=== PATIENT | female | born 1945 | race Caucasian/White ===

== ENCOUNTER → 2016-11-08 | Outpatient (CLI) | payer MEDICARE, OTHER ==
[~2016-11-08] MED LIST: AMARYL4 MG PO; ASPIRIN 81M81 MG/TA2 PO; CELLCEPT 5500 MG/TAB PO; CIPRO 500MG TA500 MG PO; GLUCOPHAGE XR500 M1 PO; HCTZ 25MG TAB25 MG PO; IMURAN 50MG TAB50 MG; IMURAN 50MG TAB50 MG PO; LEVEMIR100 U/ML SC; LOPRESSOR 225 MG/TAB PO; NOVOLOG 100U100 U/M1 SC; PREDNISONE 5MG5 MG PO; PREDNISONE10 MG PO; PRILOSEC 20MG20 MG PO; VASOTEC 10M10 MG/TAB PO
== END ==
LOC: COL.RAD 08:15
DX: K74.60 Unspecified cirrhosis of liver (principal); K76.6 Portal hypertension; R16.1 Splenomegaly, not elsewhere classified

== ENCOUNTER → 2017-07-11 | Outpatient (CLI) | payer MEDICARE, OTHER | LOC: COL.RAD 09:43 | DX: R16.1 Splenomegaly, not elsewhere classified (principal); K75.4 Autoimmune hepatitis; D50.9 Iron deficiency anemia, unspecified ==

== ENCOUNTER 2017-11-25 08:01 | Outpatient (CLI) | payer MEDICARE, OTHER ==
[~2017-11-25] VITALS: Ht 162.6 cm; Wt 69.8 kg
[2017-11-25 09:00] LABS: BASO % 0.9 % (0.0-2.0); EOS # 0.1 (0.0-0.7); EOS % 3.9 % (0-4.0); GRAN # 2.2 (1.4-6.5); GRAN % 66.6 % (42.2-75.2); HEMOGLOBIN 12.5 g/dl (12.5-16.0); LYMPH # 0.5 (1.2-3.4); LYMPH % 15.2 % (20.0-51.0); MEAN CELL VOLUME 95 fl (80.0-100.0); MEAN CORPUSCULAR HEMOGLOBIN 31 pg (27.0-31.0); MEAN CORPUSCULAR HGB CONC 33 g/dl (33.0-37.0); MEAN PLATELET VOLUME 11.3 fl (7.4-10.4); MONO # 0.4 (0.1-0.6); MONO % 12.8 % (1.7-9.3); PLATELET COUNT 87 K/mm3 (130-400); RED BLOOD COUNT 4.02 M/mm3 (4.10-5.30); REDCELL DISTRIBUTION WIDTH-CV 14.9 % (11.5-14.5)
[2017-11-25 09:03] LABS: INR 1.3 (0.8-3.0); PROTHROMBIN TIME 14.8 SECONDS (9.7-12.8)
[2017-11-25] MEDS ORDERED: TOPROL XL 50MG50 MG PO (09:08)
[2017-11-25] MEDS ORDERED: NOVOLOG 100U100 U/M1 SQ (09:11)
[2017-11-25] MEDS ORDERED: LEVEMIR100 U/ML SQ (09:12)
[2017-11-25] MEDS ORDERED: VASOTEC20 MG PO (09:13)
[2017-11-25] MEDS ORDERED: PROBIOTIC FORMU1 CAP PO (09:19)
[2017-11-25 10:45] VITALS: BP 114/52; PULSE 93
[2017-11-25 11:37] LABS: PLEURAL FLUID APPEARANCE HAZY; PLEURAL FLUID COLOR YELLOW
[2017-11-25 11:42] LABS: PLEURAL FLUID RBC 2000 /mm3 (0-0); PLEURAL FLUID WBC 703 /mm3
[2017-11-25 11:45] VITALS: BP 108/40; PULSE 97
[2017-11-25 11:59] LABS: GLUCOSE,PLEURAL FLUID 149 mg/dL
[2017-11-25 12:02] LABS: TOTAL PROTEIN,PLEURAL FLUID < 2.0 gm/dL
[2017-11-25 17:37] VITALS: BP 90/41; PULSE 93
== END 2017-11-25 12:30 | disposition home or self-care (01) ==
LOC: SDCO 08:01
PROVIDERS: Internal Medicine Pulmonary Disease
DX: J90 Pleural effusion, not elsewhere classified (principal); R06.02 Shortness of breath; K74.60 Unspecified cirrhosis of liver; K21.9 Gastro-esophageal reflux disease without esophagitis; E11.9 Type 2 diabetes mellitus without complications; I10 Essential (primary) hypertension; J32.9 Chronic sinusitis, unspecified; Z88.0 Allergy status to penicillin; Z88.2 Allergy status to sulfonamides; Z79.4 Long term (current) use of insulin; Z90.49 Acquired absence of other specified parts of digestive tract; Z83.3 Family history of diabetes mellitus
CPT/HCPCS: 19804

== ENCOUNTER → 2019-07-13 | Outpatient (CLI) | payer MEDICARE, OTHER ==
[~2019-07-13] VITALS: Ht 162.6 cm; Wt 60.8 kg
[~2019-07-13] MED LIST changes: +IMODIUM A-D2 MG PO; +K-DUR20 MEQ PO; +LASIX 40MG TABL40 MG PO; +LEVEMIR100 U/ML SQ; +MIDAMOR 5MG TAB5 MG PO; +NOVOLOG 100U100 U/M1 SQ; +PEPCID AC 10MG10 MG PO; +PROBIOTIC FORMU1 CAP PO; +TOPROL XL 50MG50 MG PO; +VASOTEC20 MG PO; +VITAMIN D32000 I1 PO
[2019-07-13 12:51] VITALS: BP 149/67; PULSE 90
[2019-07-13 13:52] VITALS: BP 141/51; PULSE 86
--- NOTE | 2019-07-13 14:12 | NUR ---
DR MCGUIRE STATES CXR IS NEGATIVE.
--- NOTE | 2019-07-13 14:25 | NUR ---
PT LEAVES WITH HER IN POV
== END ==
LOC: COL.RAD 12:15
DX: J90 Pleural effusion, not elsewhere classified (principal)

== ENCOUNTER → 2019-07-16 | Outpatient (CLI) | payer MEDICARE, OTHER | LOC: COL.RAD 13:04 | DX: K74.60 Unspecified cirrhosis of liver (principal); K75.4 Autoimmune hepatitis; J90 Pleural effusion, not elsewhere classified; D64.9 Anemia, unspecified; Z90.49 Acquired absence of other specified parts of digestive tract ==

== ENCOUNTER 2019-07-27 07:08 | Outpatient (CLI) | payer MEDICARE, OTHER ==
[~2019-07-27] VITALS: Ht 162.6 cm; Wt 59.6 kg
[2019-07-27] MEDS ORDERED: ZOFRAN8 MG PO (07:23)
[2019-07-27 07:32] VITALS: BP 118/42; PULSE 106; TEMP 97.7
--- NOTE | 2019-07-27 07:37 | NUR ---
Patient reports that her BG this AM at home was 173.
[2019-07-27 09:25] VITALS: BP 121/43; PULSE 95; TEMP 97.7
--- NOTE | 2019-07-27 09:25 | NUR ---
Patient arrives to [facility] via cart, accompanied by Endo RN Jazmine. Bedside report received. She has a clean, dry, intact bandaid on her incision. Monitoring applied - VSS and WNL on room air. She is not coughing, she denies any SOB or pain. Breath sounds are clear bilaterally to auscultation. Waiting for ordered CXR. Patient is to call the office on Tuesday to schedule a follow-up appointment. Her spouse is at the bedside and her call light is in reach.
[2019-07-27 09:30] VITALS: BP 121/38; PULSE 99
--- NOTE | 2019-07-27 09:30 | NUR ---
VSS and WNL on room air. Baindaid remains clean/dry/intact. She denies pain, SOB, or other complaints. CXR was obtained and waiting on results.
[2019-07-27 09:45] VITALS: BP 109/40; PULSE 94
--- NOTE | 2019-07-27 09:45 | NUR ---
VSS on room air. She denies any pain, SOB, or other complaints.
--- NOTE | 2019-07-27 10:00 | NUR ---
[address] Tavarez in radiology. No pneumothorax. 0948 CXR reading reported to Dr. Jarrett. TORB received to MD patient home. 0952 Patient given discharge instructions. She denies any questions and verbalizes understanding. She denies anything to eat/drink while she is at the hospital, as they are planning to go out to breakfast. 1000 Patient changes to clothing independently. She is escorted to the exit via wheelchair. Discharged to home with ride in private vehicle at 1000.
[2019-07-27 10:30] LABS: PLEURAL FLUID RBC 9000 /mm3 (0-0); PLEURAL FLUID WBC 314 /mm3
[2019-07-27 10:35] LABS: PLEURAL FLUID APPEARANCE CLOUDY; PLEURAL FLUID COLOR AMBER
[2019-07-27 10:43] LABS: TOTAL PROTEIN,PLEURAL FLUID < 2.0 gm/dL
== END 2019-07-27 10:00 | disposition home or self-care (01) ==
LOC: SDCO 07:08
PROVIDERS: Internal Medicine Pulmonary Disease
DX: J90 Pleural effusion, not elsewhere classified (principal); K74.60 Unspecified cirrhosis of liver; J94.8 Other specified pleural conditions; K21.9 Gastro-esophageal reflux disease without esophagitis; E11.9 Type 2 diabetes mellitus without complications; I10 Essential (primary) hypertension; D69.6 Thrombocytopenia, unspecified; J32.9 Chronic sinusitis, unspecified; Z79.4 Long term (current) use of insulin; Z88.0 Allergy status to penicillin; Z88.2 Allergy status to sulfonamides; Z79.84 Long term (current) use of oral hypoglycemic drugs; Z83.3 Family history of diabetes mellitus; Z90.49 Acquired absence of other specified parts of digestive tract; Z88.8 Allergy status to other drugs, medicaments and biological substances

== ENCOUNTER 2019-08-06 07:08 | Outpatient (CLI) | payer MEDICARE, OTHER ==
[~2019-08-06] VITALS: Ht 162.6 cm; Wt 60.2 kg
[~2019-08-06 07:08] MED LIST changes: +ZOFRAN8 MG PO
[2019-08-06 07:34] VITALS: BP 120/49; PULSE 93; TEMP 97.5
--- NOTE | 2019-08-06 07:53 | NUR ---
TO RM AT 0716- CALL LIGHT IN REACH MEDS AND ALLERGIES UPDATED BY AND .
[2019-08-06 09:23] VITALS: BP 111/37; PULSE 89
--- NOTE | 2019-08-06 09:23 | NUR ---
TO RM 7 PER OWN WILL STEADY GAIT. ALERT ORIENTED X 3, TALKING TO STAFF AND UPON ENTERING RM. DENIES PAIN OR DISCOMFORT. PATIENT EXPRESSED BREATHING BETTER. RECEIVED WATER AND REFUSED ANYTHING ELSE TO EAT OR DRINK.
[2019-08-06 09:35] VITALS: BP 105/36; PULSE 89
[2019-08-06 09:50] VITALS: BP 122/81; PULSE 89
--- NOTE | 2019-08-06 09:50 | NUR ---
DR ROMERO CALLED AND REPORTED NO PNEUMOTHORAX NOTED.
--- NOTE | 2019-08-06 10:00 | NUR ---
RECEIVED DISCHARGE INSTRUCTIONS AND VERBALIZED UNDERSTANDING.
--- NOTE | 2019-08-06 10:10 | NUR ---
DISCHARGED PER WC BY NURSING STAFF TO PRIVATE CAR IN CARE OF - EVIE.
== END 2019-08-06 10:15 | disposition home or self-care (01) ==
LOC: SDCO 07:08
DX: J90 Pleural effusion, not elsewhere classified (principal); K74.60 Unspecified cirrhosis of liver; K21.9 Gastro-esophageal reflux disease without esophagitis; E11.9 Type 2 diabetes mellitus without complications; I10 Essential (primary) hypertension; J32.9 Chronic sinusitis, unspecified; D69.6 Thrombocytopenia, unspecified; Z79.4 Long term (current) use of insulin; Z88.0 Allergy status to penicillin; Z88.2 Allergy status to sulfonamides; Z90.49 Acquired absence of other specified parts of digestive tract; Z88.8 Allergy status to other drugs, medicaments and biological substances
CPT/HCPCS: 19804

== ENCOUNTER 2019-08-19 15:13 | Emergency (ER) | payer MEDICARE, OTHER ==
[~2019-08-19] VITALS: Ht 162.6 cm; Wt 61.4 kg
[2019-08-19 15:46] VITALS: TEMP 98.8
[2019-08-19 16:34] LABS: BASO % 0.6 % (0.0-2.0); EOS # 0.1 (0.0-0.7); EOS % 2.3 % (0-4.0); GRAN # 2.2 (1.4-6.5); GRAN % 64.1 % (42.2-75.2); LYMPH # 0.6 (1.2-3.4); LYMPH % 17.1 % (20.0-51.0); MEAN CELL VOLUME 97 fl (80.0-100.0); MEAN CORPUSCULAR HEMOGLOBIN 32 pg (27.0-31.0); MEAN CORPUSCULAR HGB CONC 33 g/dl (33.0-37.0); MEAN PLATELET VOLUME 10.4 fl (7.4-10.4); MONO # 0.5 (0.1-0.6); MONO % 15.3 % (1.7-9.3); PLATELET COUNT 106 K/mm3 (130-400); RED BLOOD COUNT 3.73 M/mm3 (4.10-5.30); REDCELL DISTRIBUTION WIDTH-CV 16.1 % (11.5-14.5)
[2019-08-19 16:39] LABS: HEMATOCRIT 36.3 % (37.0-47.0)
[2019-08-19 16:46] LABS: ALBUMIN 3.3 gm/dL (3.5-5.0); BILIRUBIN,TOTAL 1.6 mg/dL (0.0-1.0); CALCIUM 8.4 mg/dL (8.4-10.2); CREATININE, serum 0.61 (0.52-1.25); POTASSIUM 3.7 mmol/L (3.4-5.0); TOTAL PROTEIN 5.9 gm/dL (6.4-8.2)
[2019-08-19 16:48] LABS: INR 1.4 (0.8-3.0); PROTHROMBIN TIME 16.9 SECONDS (9.7-12.8)
[2019-08-19 18:06] VITALS: BP 109/55; PULSE 88
[2019-08-20] MEDS ORDERED: TYLENOL 500MG500 MG PO (07:43)
[2019-08-20] MEDS ORDERED: CIPRO 500MG TA500 MG PO (07:54)
== END 2019-08-19 18:06 | disposition home or self-care (01) ==
LOC: COL.ER 15:13
PROVIDERS: Emergency Medicine
DX: J90 Pleural effusion, not elsewhere classified (principal); I10 Essential (primary) hypertension; E11.9 Type 2 diabetes mellitus without complications; Z79.4 Long term (current) use of insulin

== ENCOUNTER 2019-08-20 07:05 | Day surgery (SDC) | payer MEDICARE, OTHER ==
[~2019-08-20] VITALS: Ht 162.6 cm; Wt 61.4 kg
[2019-08-20] MEDS ORDERED: TYLENOL 500MG500 MG PO (07:43)
--- NOTE | 2019-08-20 07:45 | NUR ---
Dr. Jarrett calls to ask patient if she would like her procedure today with the radiologist or with Dr. Jarrett. The patient is fine with either, but the radiolgist may be available around 0900. Wait to have procedure at 0900.
[2019-08-20] MEDS ORDERED: CIPRO 500MG TA500 MG PO (07:54)
[2019-08-20 08:13] VITALS: BP 113/47; PULSE 80; TEMP 97.4
--- NOTE | 2019-08-20 09:10 | NUR ---
Procedure not able to be done by radiologist until 1030. Dr. Jarrett available to do procedure around 1000. Pt informed about this.
--- NOTE | 2019-08-20 09:48 | NUR ---
Dr. Jarrett available. Pt ambulates to procedure room without complication.
--- NOTE | 2019-08-20 09:50 | NUR ---
Dr. Jarrett visiting with patient. Pt positioned for procedure.
[2019-08-20 10:23] VITALS: BP 111/42; PULSE 85; TEMP 97.6
--- NOTE | 2019-08-20 10:23 | NUR ---
Pt returns from procedure via cart and this RN to [facility]. [id number] brought to pt room. Monitors on and alarms set. Call light within reach. Pt requests water and applesauce. Pt denies pain or nausea and ready to depart as soon as results from the x-ray are finalized. Pt alert and oriented.
[2019-08-20 10:30] VITALS: BP 105/40; PULSE 83
--- NOTE | 2019-08-20 10:30 | NUR ---
Pt taking food and drink well. Pt voices no complications.
--- NOTE | 2019-08-20 10:40 | NUR ---
Radiology here for x-ray.
[2019-08-20 10:45] VITALS: BP 108/41; PULSE 83
--- NOTE | 2019-08-20 11:08 | NUR ---
Radiologist called. No pneumothorax.
--- NOTE | 2019-08-20 11:20 | NUR ---
Discharge instructions given to patient and family. Multiple questions answered and explanations given. Handed to patient are a thank you card, discharge instructions, diagnosis information, and a discharge summary.
--- NOTE | 2019-08-20 11:33 | NUR ---
Pt transferred out of hospital via wheelchair and this RN to private vehicle driven by [id number].
[2019-08-20 12:54] LABS: PLEURAL FLUID RBC 10000 /mm3 (0-0); PLEURAL FLUID WBC 153 /mm3
[2019-08-20 13:24] LABS: TOTAL PROTEIN,PLEURAL FLUID < 2.0 gm/dL
[2019-08-20 13:37] LABS: PLEURAL FLUID COLOR PINK
[2019-08-20 13:38] LABS: PLEURAL FLUID APPEARANCE HAZY
[2019-08-20 14:51] VITALS: BP 96/40; PULSE 77
== END 2019-08-20 11:33 | disposition home or self-care (01) ==
LOC: SDCO 07:05
PROVIDERS: Internal Medicine Pulmonary Disease
DX: J90 Pleural effusion, not elsewhere classified (principal); K74.60 Unspecified cirrhosis of liver; K21.9 Gastro-esophageal reflux disease without esophagitis; E11.9 Type 2 diabetes mellitus without complications; I10 Essential (primary) hypertension; J34.89 Other specified disorders of nose and nasal sinuses; J32.9 Chronic sinusitis, unspecified; K74.69 Other cirrhosis of liver; D69.6 Thrombocytopenia, unspecified; K75.4 Autoimmune hepatitis; Z79.4 Long term (current) use of insulin; Z90.49 Acquired absence of other specified parts of digestive tract; Z88.0 Allergy status to penicillin; Z88.2 Allergy status to sulfonamides
CPT/HCPCS: 19804

== ENCOUNTER → 2019-08-24 | Outpatient (CLI) | payer MEDICARE, OTHER ==
[~2019-08-24] MED LIST changes: +TYLENOL 500MG500 MG PO
== END ==
LOC: COL.VAS 10:30
DX: I08.0 Rheumatic disorders of both mitral and aortic valves (principal); J90 Pleural effusion, not elsewhere classified; R18.8 Other ascites

== ENCOUNTER → 2019-12-27 | Outpatient (CLI) | payer MEDICARE, OTHER | LOC: COL.VAS 13:11 | DX: I27.20 Pulmonary hypertension, unspecified (principal); I34.0 Nonrheumatic mitral (valve) insufficiency ==

== ENCOUNTER 2020-02-06 07:11 | Outpatient (CLI) | payer MEDICARE, OTHER ==
[~2020-02-06] VITALS: Ht 162.6 cm; Wt 56.7 kg
[2020-02-06 07:42] VITALS: BP 110/41; PULSE 111; TEMP 98
[2020-02-06 09:00] VITALS: BP 111/36; PULSE 95; TEMP 97.9
--- NOTE | 2020-02-06 09:00 | NUR ---
VSS. PATIENT SITTING UP ON SIDE OF CART. PATIENT DENIES SHORTNESS OF BREATH AND DISCOMFORT. PATIENT IS NOT CURRENTLY COUGHING. 09 PATIENT GIVEN ICE WATER AND TOAST. 0906 RADIOLOGY IN ROOM FOR CHEST XRAY.
[2020-02-06 09:15] VITALS: BP 116/41; PULSE 104
--- NOTE | 2020-02-06 09:15 | NUR ---
VSS. PATIENT TOLERATES WATER AND TOAST WITHOUT PROBLEMS. PATIENT CONTINUES TO DENY DISCOMFORT AND SHORTNESS OF BREATH. 0916 REPORT CALLED TO EXPRESS UNIT TO ELIO IRENE. 09 PATIENT TRANSPORTED PER WHEELCHAIR WITH ALL PERSONAL BELONGS ACCOMPANIED BY AMBULATORY NURSE TO EXPRESS UNIT TO RECEIVE ALBUMIN INFUSION. ELIO IRENE AT CHAIR SIDE.
[2020-02-06 09:35] VITALS: BP 108/43; PULSE 101; TEMP 97
--- NOTE | 2020-02-06 09:35 | NUR ---
PT RECIEVED FROM OP FOR ALBUMIN INFUSION, DR THOMPSON ENTERED ORDER FOR 12.5 AND CONFIRMED WITH PHARMACIST. PT TO EU 10, TRANSFERS SELF VSS. IV STARTED #22 TO LAC. FIRST ATTEMPT. REVIEWED MED WITH PT AND INFUSION STARTED AT 80CC/HR BANDAID TO BACK LEFT LOWER CHEST IS CLEAN AND DRY.
--- NOTE | 2020-02-06 09:58 | NUR ---
VSS. PATIENT ALERT AND ORIENTED X 3. PATIENT DENIES DISCOMFORT AND SHORTNESS OF BREATH. 0905 PATIENT GIVEN ICE WATER AND TOAST.
--- NOTE | 2020-02-06 10:06 | NUR ---
NOTIFIED DR THOMPSON PER PHONE OF XRAY BEING RESULTED IN COMPUTER.
[2020-02-06 10:26] VITALS: BP 106/40; PULSE 103
--- NOTE | 2020-02-06 10:28 | NUR ---
infuison completed, iv dc'd intact, pt has no c/o or dizziness. skin warm and dry, no change in assessment. discharged via w/c to car to
== END 2020-02-06 10:35 | disposition home or self-care (01) ==
LOC: SDCO 07:11
DX: J90 Pleural effusion, not elsewhere classified (principal); K74.60 Unspecified cirrhosis of liver; K21.9 Gastro-esophageal reflux disease without esophagitis; E11.9 Type 2 diabetes mellitus without complications; I10 Essential (primary) hypertension; I27.20 Pulmonary hypertension, unspecified; J32.9 Chronic sinusitis, unspecified; I31.3 Pericardial effusion (noninflammatory); Z88.0 Allergy status to penicillin; Z88.2 Allergy status to sulfonamides; Z79.4 Long term (current) use of insulin
CPT/HCPCS: P9047

== ENCOUNTER 2020-02-21 07:32 | Outpatient (CLI) | payer MEDICARE, OTHER ==
[~2020-02-21] VITALS: Ht 162.6 cm; Wt 57.3 kg
[~2020-02-21 07:32] MED LIST changes: +MASON NATURAL2000 IU PO; -VITAMIN D32000 I1 PO
[2020-02-21 08:01] VITALS: BP 105/31; PULSE 81; TEMP 97.8
[2020-02-21 09:50] VITALS: BP 90/31; PULSE 80
--- NOTE | 2020-02-21 09:50 | NUR ---
Patient returns to room 6 per cart after having thoracentesis completed. Bandaid on the right lower back dry. No drainage noted at site. Spouse in the room and call light in reach. Chest xray was completed prior to returning to room and no pneumothorax noted.
--- NOTE | 2020-02-21 10:00 | NUR ---
Eating applesauce and drinking water. Denies shortness of breath or difficulty breathing.
[2020-02-21 10:05] VITALS: BP 97/36; PULSE 82
--- NOTE | 2020-02-21 10:05 | NUR ---
Room air sats 98% and tolerates sitting up on cart.
[2020-02-21 10:20] VITALS: BP 100/36; PULSE 80
--- NOTE | 2020-02-21 10:20 | NUR ---
Tolerated applesauce and water. Continues to deny shortness of breath of chest pains. Assisted with dressing in preparation for discharge.
--- NOTE | 2020-02-21 10:28 | NUR ---
Dismissal instructions given and voices understanding of these. Follow up will be as needed.
--- NOTE | 2020-02-21 10:31 | NUR ---
Patient dismissed to home driven by spouse and taken to the front door per wheelchair by this RN and assisted into car with instructions in hand.
[2020-02-21 11:34] VITALS: BP 101/48; PULSE 84
== END 2020-02-21 10:31 | disposition home or self-care (01) ==
LOC: SDCO 07:32 → EDSTATUS 08:15 → SDCO 08:15
DX: J90 Pleural effusion, not elsewhere classified (principal); K74.60 Unspecified cirrhosis of liver; Z88.0 Allergy status to penicillin; Z88.2 Allergy status to sulfonamides; K21.9 Gastro-esophageal reflux disease without esophagitis; E11.9 Type 2 diabetes mellitus without complications; I10 Essential (primary) hypertension; I27.20 Pulmonary hypertension, unspecified; D69.6 Thrombocytopenia, unspecified; Z79.4 Long term (current) use of insulin
CPT/HCPCS: 19804

== ENCOUNTER 2020-03-02 11:25 | Inpatient (IN) | payer MEDICARE, OTHER ==
[~2020-03-02] VITALS: Ht 162.6 cm; Wt 57.6 kg
[2020-03-02 11:57] LABS: EOS # 0.1 (0.0-0.7); EOS % 2.9 % (0-4.0); GRAN # 2.8 (1.4-6.5); GRAN % 68.7 % (42.2-75.2); LYMPH # 0.5 (1.2-3.4); LYMPH % 11.9 % (20.0-51.0); MEAN CELL VOLUME 99 fl (80.0-100.0); MEAN CORPUSCULAR HGB CONC 33 g/dl (33.0-37.0); MEAN PLATELET VOLUME 11.5 fl (7.4-10.4); MONO # 0.6 (0.1-0.6); MONO % 15.3 % (1.7-9.3); PLATELET COUNT 131 K/mm3 (130-400); RED BLOOD COUNT 2.34 M/mm3 (4.10-5.30); REDCELL DISTRIBUTION WIDTH-CV 17.2 % (11.5-14.5)
[2020-03-02 12:00] LABS: HEMATOCRIT 23.2 % (37.0-47.0); HEMOGLOBIN 7.6 g/dl (12.5-16.0); MEAN CORPUSCULAR HEMOGLOBIN 32 pg (27.0-31.0)
[2020-03-02 12:07] LABS: INR 1.5 (0.8-3.0); PROTHROMBIN TIME 16.7 SECONDS (9.7-12.8)
[2020-03-02 12:09] LABS: PARTIAL THROMBOPLASTIN TIME 29.6 SECONDS (26.0-37.0)
[2020-03-02 12:11] LABS: ALANINE AMINOTRANSFERASE 22 U/L (4-34); ALBUMIN 3.2 gm/dL (3.5-5.0); ALKALINE PHOSPHATASE 203 U/L (50-136); ANION GAP 11 mmol/L (7-16); AST,SGOT 37 U/L (15-37); BILIRUBIN,TOTAL 1.7 mg/dL (0.0-1.0); BLOOD UREA NITROGEN 29 mg/dL (7-17); CALCIUM 8.4 mg/dL (8.4-10.2); CARBON DIOXIDE 21 mmol/L (22-30); CHLORIDE 95 mmol/L (98-107); CREATININE, serum 1.42 (0.52-1.25); GLUCOSE 241 mg/dL (74-106); MAGNESIUM 1.5 mg/dL (1.6-2.3); PHOSPHOROUS 3.9 mg/dL (2.5-4.5); POTASSIUM 4.2 mmol/L (3.4-5.0); SODIUM 127 mmol/L (137-145); TOTAL PROTEIN 5.8 gm/dL (6.4-8.2)
[2020-03-02 12:31] LABS: TROPONIN-I < 0.012 ng/mL (0.000-0.035)
[2020-03-02 13:07] LABS: COLLECTION METHOD CLEAN CATCH
[2020-03-02 13:29] LABS: MUCOUS Present /lpf; PH 5 (5-8); SQUAMOUS EPITHELIAL None Seen /hpf; URINE APPEARANCE Clear; URINE BACTERIA None Seen /hpf; URINE BILIRUBIN Negative (NEGATIVE); URINE BLOOD Negative (NEGATIVE); URINE COLOR Straw; URINE GLUCOSE Negative (NEGATIVE); URINE KETONE Negative (NEGATIVE); URINE LEUKOCYTE ESTERASE Negative (NEGATIVE); URINE NITRATE Negative (NEGATIVE); URINE PROTEIN(semi-quant) Negative (NEGATIVE); URINE RBC 0-2 /hpf; URINE UROBILINOGEN Negative (NEGATIVE)
[2020-03-02 16:44] LABS: BASO % 0.6 % (0.0-2.0); EOS # 0.2 (0.0-0.7); EOS % 3.6 % (0-4.0); GRAN # 3.4 (1.4-6.5); GRAN % 71.8 % (42.2-75.2); LYMPH # 0.6 (1.2-3.4); LYMPH % 11.7 % (20.0-51.0); MEAN CELL VOLUME 100 fl (80.0-100.0); MEAN CORPUSCULAR HGB CONC 32 g/dl (33.0-37.0); MEAN PLATELET VOLUME 10.7 fl (7.4-10.4); MONO # 0.6 (0.1-0.6); MONO % 11.9 % (1.7-9.3); PLATELET COUNT 144 K/mm3 (130-400); RED BLOOD COUNT 2.26 M/mm3 (4.10-5.30); REDCELL DISTRIBUTION WIDTH-CV 17.2 % (11.5-14.5)
[2020-03-02 16:55] LABS: HEMATOCRIT 22.5 % (37.0-47.0); HEMOGLOBIN 7.3 g/dl (12.5-16.0); MEAN CORPUSCULAR HEMOGLOBIN 32 pg (27.0-31.0)
[2020-03-02] MEDS ORDERED: TOPROL XL 25MG25 MG PO (17:22)
[2020-03-02] MEDS ORDERED: K-DUR 10 MEQ T10 MEQ PO (17:31)
[2020-03-02 17:46] VITALS: BP 111/39; PULSE 90; TEMP 97.5
--- NOTE | 2020-03-02 17:54 | NUR ---
PATIENT AND IN ROOM PATIENT IS COMFORTABLE IN BED. NO NEEDS EXPRESSED. AWAITING SUPPER
--- NOTE | 2020-03-02 20:00 | NUR ---
Received report from ELIO Car. Family at bedside during shift change. PT sitting up on side of bed. A/Ox4. Denies any pain or discomfort at this time. States she feels tired and wants to sleep. Scheduled meds administered. IVF currently infusing to LFA IV, dressing CDI. Tele monitor in place. Pt ambulatory, only needs assistance with IVF. Pt on ACHS checks, pt prefers and requests to use personal insulin pen and to dose self as she feels more comfortable. Informed pt that hospital can provide her with same insulin, but pt prefers to use own insulin pen and refuses SSI. Pt states that she drops low at night time and did not give self any insuling, BG 168. ECHO Alfaro notified. Needs met at this time. Informed pt that urine sample is needed. Call light within reach.
[2020-03-02 20:27] VITALS: BP 102/39; PULSE 92; TEMP 98.4
[2020-03-02 21:28] LABS: RETIC # 0.07 M/mm3 (0.02-0.16); RETIC % 2.9 % (0.5-3.52)
[2020-03-02 21:37] LABS: IRON,SERUM 215 ug/dL (35-150)
[2020-03-02 21:46] LABS: TOTAL IRON BINDING CAPACITY 283 ug/dL (265-497)
[2020-03-02 23:33] LABS: COLLECTION METHOD CLEAN CATCH
[2020-03-02 23:43] LABS: MUCOUS Present /lpf; PH 5 (5-8); SQUAMOUS EPITHELIAL 0-2 /hpf; URINE APPEARANCE Hazy; URINE BACTERIA Rare /hpf; URINE BILIRUBIN Negative (NEGATIVE); URINE BLOOD Negative (NEGATIVE); URINE CALCIUM OXALATE CRYSTAL Present /hpf; URINE COLOR Yellow; URINE GLUCOSE Negative (NEGATIVE); URINE KETONE Negative (NEGATIVE); URINE LEUKOCYTE ESTERASE 1+ (NEGATIVE); URINE NITRATE Negative (NEGATIVE); URINE PROTEIN(semi-quant) Negative (NEGATIVE); URINE UROBILINOGEN Negative (NEGATIVE)
--- NOTE | 2020-03-02 23:50 | NUR ---
Assisted pt to BR. Urine collected and sent to lab. Made pt comfortable in bed. Call light within reach.
[2020-03-03] VITALS (7 sets, daily range): BP systolic 82–117; BP diastolic 31–49; PULSE 86–106; TEMP 97.9–98.4
--- NOTE | 2020-03-03 06:10 | NUR ---
Pt had difficulty sleeping last night. Needs met. Made pt comfortable in bed. SBA to BR. NS 1L completed, IV to INT RFA. Call light within reach.
[2020-03-03 06:26] LABS: MEAN CELL VOLUME 98 fl (80.0-100.0); MEAN CORPUSCULAR HGB CONC 33 g/dl (33.0-37.0); MEAN PLATELET VOLUME 11.4 fl (7.4-10.4); PLATELET COUNT 105 K/mm3 (130-400); RED BLOOD COUNT 2.15 M/mm3 (4.10-5.30); REDCELL DISTRIBUTION WIDTH-CV 16.7 % (11.5-14.5)
[2020-03-03 06:39] LABS: HEMATOCRIT 21.1 % (37.0-47.0); MEAN CORPUSCULAR HEMOGLOBIN 33 pg (27.0-31.0)
[2020-03-03 06:41] LABS: ALBUMIN 2.9 gm/dL (3.5-5.0); CALCIUM 8.1 mg/dL (8.4-10.2); CREATININE, serum 1.21 (0.52-1.25); MAGNESIUM 1.7 mg/dL (1.6-2.3); PHOSPHOROUS 3.3 mg/dL (2.5-4.5); TOTAL PROTEIN 5.4 gm/dL (6.4-8.2)
--- NOTE | 2020-03-03 06:51 | NUR ---
Report given to ELIO Shepherd.
--- NOTE | 2020-03-03 07:18 | NUR ---
Report given to ELIO Shepherd.
[2020-03-03 08:10] LABS: BAND 12 % (0-10); EOSINOPHIL 3 % (0-4); LYMPHOCYTE 8 % (20.0-51.0); NEUTROPHILS 74 % (42.0-75.2); OVALOCYTES 2+; PLATELET ESTIMATE DECREASED (NORMAL)
--- NOTE | 2020-03-03 12:00 | NUR ---
Student nurse Laura from [place] providing cares for this patient. Laura informed this nurse that patient had insulin pen at bedside. Per student and patient, pt gave herself 16 units novolog this morning. Pt and very strict w/ BS control at home. This nurse explained to patient and that we would need to discuss w/ hospitalist first about proceeding and the correct scale to use to manage BS. Pt verbalized understanding. Hospitalist aware and will discuss w/ patient.
--- NOTE | 2020-03-03 12:33 | NUR ---
Pt. IV flushed with 5 mL NS at 0945.
--- NOTE | 2020-03-03 13:45 | NUR ---
Elementary Education Tutor met with the patient and ther , Tushar to complete initial intake. The patient lives in [place] with Tushar. The patient denies DME use and is independent with ADLs. The patient's PCP is Dr. Stone in [place] and patient receives medications from [facility] with no difficulties. The patient has advanced directives in the EMR. The patient plans to return home, Tushar will provide transportation. She has no concerns regarding discharge. PT/OT are recommending home or possible OP PT if weakness continues. There are no additional needs at this time.
--- NOTE | 2020-03-03 16:29 | NUR ---
First visit from the net application support specialist. No needs right now.
--- NOTE | 2020-03-03 19:21 | NUR ---
Discussed w/ hospitalist this afternoon about patient and sliding scale options. When visiting w/ patient and , they were under the understanding she could use her own insulin pen. Notified ECHO Cruz who went to visit w/ patient. 15 units per pt own insulin pen to be administered and then on our sliding scale as needed. Insulin pen sent to pharmacy to be scanned. Pt requesting ensure, provided. No further needs expressed at this time.
--- NOTE | 2020-03-03 20:00 | NUR ---
Pt personal insuling pen labeled by pharmacy and place in bin in med room. BG HS 217, pt dosed self 12 units. Scheduled meds administered. Denies any pain or discomfort at this time. INT to RFA infiltrated and DC'd. Pt request no IV restart at this time as she does not have any IV meds scheduled. [facility] notified and ok to leave IV out at this time. Tele monitor in place. Needs met. Call light within reach.
[2020-03-04] VITALS (14 sets, daily range): BP systolic 98–132; BP diastolic 35–79; PULSE 89–117; TEMP 97.2–98.2
--- NOTE | 2020-03-04 02:40 | NUR ---
Pt woke up anxious and agitated. Pt kept taking off gown and O2. Pt voiced "help me help me." PRN ativan and ismael administered. Made pt comfortable. Bed alarm set. Call light within reach.
--- NOTE | 2020-03-04 03:30 | NUR ---
Pt woke up agitated. Pt found with gown and O2 removed. Reoriented pt and placed gown and O2 back on pt. Incontinent of urine, briefs changed. Made pt comfortable in bed with HOB elevated. Bed alarm set. Will monitor pt.
--- NOTE | 2020-03-04 06:53 | NUR ---
Report given to ELIO Shepherd>
[2020-03-04 07:47] LABS: BASO % 0.7 % (0.0-2.0); EOS # 0.1 (0.0-0.7); EOS % 3.2 % (0-4.0); GRAN % 69.6 % (42.2-75.2); LYMPH # 0.4 (1.2-3.4); LYMPH % 13.6 % (20.0-51.0); MEAN CELL VOLUME 99 fl (80.0-100.0); MEAN CORPUSCULAR HGB CONC 34 g/dl (33.0-37.0); MEAN PLATELET VOLUME 11.2 fl (7.4-10.4); MONO # 0.4 (0.1-0.6); MONO % 12.9 % (1.7-9.3); PLATELET COUNT 101 K/mm3 (130-400); RED BLOOD COUNT 1.97 M/mm3 (4.10-5.30); REDCELL DISTRIBUTION WIDTH-CV 17.1 % (11.5-14.5)
[2020-03-04 07:48] LABS: CALCIUM 8.5 mg/dL (8.4-10.2); CREATININE, serum 1.1 (0.52-1.25); POTASSIUM 3.9 mmol/L (3.4-5.0)
[2020-03-04 07:51] LABS: HEMATOCRIT 19.4 % (37.0-47.0); HEMOGLOBIN 6.5 g/dl (12.5-16.0); MEAN CORPUSCULAR HEMOGLOBIN 33 pg (27.0-31.0)
--- NOTE | 2020-03-04 10:03 | NUR ---
Pt assessment completed and charted, medications administered per SEP. Pt sitting in chair for breakfast. Pt A&O, indpendent in room, on room air, breathing even and unlabored. Denies dizziness, SOB, N/V/D, chest pain. States she had some chest heaviness last night but thinks it was d/t gerd. HR tachy but reg rate rhythm. Rt lung sounds diminished, Lt lung sounds cta. BS hypoactive, abdomen distended, firm. BLE/feet edema 1-2+. Pulses strong bilaterally. Pt had no IV this morning but needs blood today, new 20g started in LFA, flushed w/o difficulty and good blood return. No further needs at this time. Hospitalist in to visit w/ pt. Informed to discuss insulin sliding scale and come up with plan. Pt currently has order to self admin 15 units Novolog w/ meals. Call light within reach.
[2020-03-04 11:40] LABS: INR 1.5 (0.8-3.0); PROTHROMBIN TIME 16.9 SECONDS (9.7-12.8)
--- NOTE | 2020-03-04 14:26 | NUR ---
Pt BS checked, 255, requesting only 10 units of the scheduled 15 from her self admin pen. Pt not having lunch and going for procedure at this time. Difficult to get straight answer from pt regarding how much insulin she thinks she needs. Informed pt to let this nurse know if she thought she needed to be rechecked prior to dinner.
[2020-03-04 17:40] LABS: PERITONEAL -POLYMORPHONUCLEAR 23.8 % (0-25); PERITONEAL FLUID RBC 27000 /mm3 (0-0)
--- NOTE | 2020-03-04 17:48 | NUR ---
Pt to receive blood transfusion for Hgb 6.5, 1 unit. Transfusion started at this time. this nurse remaining at bedside. Initial VS obtained, stable. Consent signed and on chart. transfusion running at 60ml/hr to 20G LFA.
--- NOTE | 2020-03-04 18:03 | NUR ---
Transfusion still in process to LFA, rate increased to 100ml/hr, VSS, pt tolerating well.
[2020-03-04 18:04] LABS: GLUCOSE,PLEURAL FLUID 184 mg/dL
[2020-03-04 18:05] LABS: TOTAL PROTEIN,PLEURAL FLUID < 2.0 gm/dL
--- NOTE | 2020-03-04 18:57 | NUR ---
Pt sitting in bed, tolerating blood transfusion well, VSS. Pt refused having BS checked d/t not eating this afternoon and just eating a snack after getting back from procedures. Will have BS checked before bed, did received 15 units Novolog self administered w/own pen.
[2020-03-04 21:28] LABS: HEMATOCRIT 23.3 % (37.0-47.0); HEMOGLOBIN 7.5 g/dl (12.5-16.0)
--- NOTE | 2020-03-04 21:40 | NUR ---
Pt assessment completed and documented. Pt resting in bed at this time stating that she is going to try to go to sleep soon. Pt alert and oriented x4. Denies pain. Tolerated blood transfusion well. INT to right forearm CDI. Pt denies any other needs at this time. Call light within reach. Will continue to monitor
[2020-03-05 00:52] VITALS: BP 101/40; PULSE 93; TEMP 97.9
[2020-03-05 03:50] LABS: BASO % 0.3 % (0.0-2.0); EOS # 0.1 (0.0-0.7); EOS % 3.4 % (0-4.0); GRAN # 2.4 (1.4-6.5); GRAN % 72.5 % (42.2-75.2); LYMPH # 0.4 (1.2-3.4); LYMPH % 12.5 % (20.0-51.0); MEAN CELL VOLUME 97 fl (80.0-100.0); MEAN CORPUSCULAR HGB CONC 34 g/dl (33.0-37.0); MEAN PLATELET VOLUME 10.4 fl (7.4-10.4); MONO # 0.4 (0.1-0.6); PLATELET COUNT 83 K/mm3 (130-400); RED BLOOD COUNT 2.29 M/mm3 (4.10-5.30); REDCELL DISTRIBUTION WIDTH-CV 16.6 % (11.5-14.5)
[2020-03-05 03:52] LABS: HEMATOCRIT 22.3 % (37.0-47.0); HEMOGLOBIN 7.5 g/dl (12.5-16.0); MEAN CORPUSCULAR HEMOGLOBIN 33 pg (27.0-31.0)
[2020-03-05 04:00] LABS: CALCIUM 8.2 mg/dL (8.4-10.2); CREATININE, serum 1.08 (0.52-1.25); POTASSIUM 4.1 mmol/L (3.4-5.0)
[2020-03-05 04:29] VITALS: BP 105/45; PULSE 92; TEMP 97.8
--- NOTE | 2020-03-05 05:04 | NUR ---
Pt has rested well overnight. No complaints of pain. INT to right forearm CDI. Telemetry on. Call light within reach.
[2020-03-05 07:14] VITALS: BP 99/47; PULSE 88; TEMP 97.5
--- NOTE | 2020-03-05 10:50 | NUR ---
Assessment completed, alert/oriented, vital signs stable, denies pain or discomfort, reports breathing is easier today s/p thoracentesis, lungs CTA/ diminished, abdomen is soft and denies pain, GI consulted and has been in to see patient an ddiscuss plan of care, hemaglobin stable and unchanged from yesterday at 7.5, present at bedside, deny other needs at this time
[2020-03-05 12:44] VITALS: BP 95/41; PULSE 88; TEMP 98
[2020-03-05 15:37] LABS: HEMATOCRIT 23.1 % (37.0-47.0); HEMOGLOBIN 7.6 g/dl (12.5-16.0)
--- NOTE | 2020-03-05 15:43 | NUR ---
Bushing And Broach Operator met with the patient to present the IM form. The patient understood and signed the form. A copy was provided to the patient and original placed in the chart.
[2020-03-05] MEDS ORDERED: TOPROL XL 25MG25 MG PO (15:48)
[2020-03-05] MEDS ORDERED: LASIX 20MG TABL20 MG PO (15:49)
--- NOTE | 2020-03-05 16:25 | NUR ---
DischArge orders discussed with patient and her , instucted to follow up as scheduled, discussed medications and to take as prescribed, IV and tele removed, leaving with her , I will escort her out the door
== END 2020-03-05 16:42 | disposition home or self-care (01) | DRG 683 ==
LOC: COL.ER 11:25 → MEDICAL 14:47
PROVIDERS: Emergency Medicine; Hospitalist; Physician Assistant
PROC: 0W9G3ZZ Drainage of Peritoneal Cavity, Percutaneous Approach (ICD-10-PCS; principal; 2020-03-04)
PROC: 0W993ZZ Drainage of Right Pleural Cavity, Percutaneous Approach (ICD-10-PCS; 2020-03-04)
DX: N17.9 Acute kidney failure, unspecified (principal); E87.1 Hypo-osmolality and hyponatremia; E87.2 Acidosis; J90 Pleural effusion, not elsewhere classified; R18.8 Other ascites; K76.6 Portal hypertension; L51.1 Stevens-Johnson syndrome; E11.9 Type 2 diabetes mellitus without complications; I10 Essential (primary) hypertension; E78.5 Hyperlipidemia, unspecified; K21.9 Gastro-esophageal reflux disease without esophagitis; K74.60 Unspecified cirrhosis of liver; D64.9 Anemia, unspecified; K75.4 Autoimmune hepatitis; E83.42 Hypomagnesemia; D69.6 Thrombocytopenia, unspecified; Z79.4 Long term (current) use of insulin; Z88.2 Allergy status to sulfonamides; Z88.0 Allergy status to penicillin
CPT/HCPCS: 99223-AI; 99232-AI; 99239; J1815; J3475; J7030; J7050; J7517; P9016; Q9967

== ENCOUNTER 2020-03-09 03:16 | Observation (INO) | payer MEDICARE, OTHER ==
[~2020-03-09] VITALS: Ht 162.6 cm; Wt 59.5 kg
[~2020-03-09 03:16] MED LIST changes: +K-DUR 10 MEQ T10 MEQ PO; +LASIX 20MG TABL20 MG PO; +TOPROL XL 25MG25 MG PO
[2020-03-09 04:15] LABS: BASO % 0.8 % (0.0-2.0); EOS # 0.2 (0.0-0.7); GRAN % 74.6 % (42.2-75.2); LYMPH # 0.4 (1.2-3.4); LYMPH % 8.1 % (20.0-51.0); MEAN CELL VOLUME 96 fl (80.0-100.0); MEAN CORPUSCULAR HGB CONC 34 g/dl (33.0-37.0); MEAN PLATELET VOLUME 10.6 fl (7.4-10.4); MONO # 0.6 (0.1-0.6); MONO % 11.7 % (1.7-9.3); PLATELET COUNT 156 K/mm3 (130-400); RED BLOOD COUNT 2.62 M/mm3 (4.10-5.30)
[2020-03-09 04:17] LABS: HEMATOCRIT 25.1 % (37.0-47.0); HEMOGLOBIN 8.4 g/dl (12.5-16.0); MEAN CORPUSCULAR HEMOGLOBIN 32 pg (27.0-31.0)
[2020-03-09 04:21] LABS: INR 1.4 (0.8-3.0); PROTHROMBIN TIME 15.5 SECONDS (9.7-12.8)
[2020-03-09 04:27] LABS: ALANINE AMINOTRANSFERASE 23 U/L (4-34); ALBUMIN 3.4 gm/dL (3.5-5.0); ALKALINE PHOSPHATASE 248 U/L (50-136); ANION GAP 11 mmol/L (7-16); AST,SGOT 44 U/L (15-37); BILIRUBIN,TOTAL 2.4 mg/dL (0.0-1.0); BLOOD UREA NITROGEN 31 mg/dL (7-17); CALCIUM 8.7 mg/dL (8.4-10.2); CARBON DIOXIDE 18 mmol/L (22-30); CHLORIDE 96 mmol/L (98-107); CREATININE, serum 1.27 (0.52-1.25); GLUCOSE 147 mg/dL (74-106); POTASSIUM 5.1 mmol/L (3.4-5.0); SODIUM 124 mmol/L (137-145); TOTAL PROTEIN 6.1 gm/dL (6.4-8.2)
[2020-03-09 05:06] LABS: TROPONIN-I < 0.012 ng/mL (0.000-0.035)
[2020-03-09 06:55] VITALS: BP 120/47; PULSE 103; TEMP 97.8
--- NOTE | 2020-03-09 13:51 | NUR ---
Discharge paperwork reviewed with the patient. Patient verbalized an understanding to follow doctors orders. IV removed, tip intact. Gauze and coban applied. Patient tolerated well. Patient assisted by wheelchair to the vehicle at the ER entrance. No further needs expressed from the patient.
== END 2020-03-09 13:50 | disposition home or self-care (01) ==
LOC: COL.ER 03:16 → MEDICAL 04:42
PROVIDERS: Emergency Medicine; ADMIT Internal Medicine Pulmonary Disease
DX: J90 Pleural effusion, not elsewhere classified (principal); K74.60 Unspecified cirrhosis of liver; K75.4 Autoimmune hepatitis; D64.9 Anemia, unspecified; N17.9 Acute kidney failure, unspecified; E87.6 Hypokalemia; E87.2 Acidosis; E11.9 Type 2 diabetes mellitus without complications; I10 Essential (primary) hypertension; E78.5 Hyperlipidemia, unspecified; K21.9 Gastro-esophageal reflux disease without esophagitis; Z66 Do not resuscitate; Z88.0 Allergy status to penicillin; Z88.2 Allergy status to sulfonamides; K76.0 Fatty (change of) liver, not elsewhere classified; E78.00 Pure hypercholesterolemia, unspecified; D50.9 Iron deficiency anemia, unspecified; Z90.49 Acquired absence of other specified parts of digestive tract
CPT/HCPCS: G0378; J7030; J7517

== ENCOUNTER → 2020-03-20 | Outpatient (CLI) | payer MEDICARE, OTHER ==
[~2020-03-20] VITALS: Ht 162.6 cm; Wt 60.0 kg
[2020-03-20 10:37] VITALS: BP 124/51; PULSE 105
[2020-03-20 13:00] VITALS: BP 117/56; PULSE 105
== END ==
LOC: COL.RAD 09:51
DX: J90 Pleural effusion, not elsewhere classified (principal); R18.8 Other ascites

== ENCOUNTER 2020-04-01 23:57 | Emergency (ER) | payer MEDICARE, OTHER | END 2020-04-02 | LOC: COL.ER 23:57 | DX: R69 Illness, unspecified (principal); Z53.21 Procedure and treatment not carried out due to patient leaving prior to being seen by health care provider ==